=== PATIENT | male | born 1990 | race Caucasian/White ===

== ENCOUNTER → 2017-11-22 | Outpatient (CLI) | payer BC ==
--- NOTE | 2017-11-22 09:08 | CT ---
EXAMINATION TYPE: CT sinus wo con DATE OF EXAM: 11/22/2017 COMPARISON: NONE HISTORY: Chronic sinusitis CT DLP: [address] of the paranasal sinuses was performed in the axial plane for a preoperative for image guided sinus localization. Bone and soft tissue settings are submitted. There is mucosal thickening noted throughout all visualized paranasal sinuses compatible pansinusitis . Underlying polyposis is not excluded. The nasal septum is midline. No bony destructive changes are seen within the field of view. IMPRESSION: Pansinusitis. Underlying adipose is not excluded.
== END | disposition home or self-care (01) ==
LOC: RADCTMAIN 07:34
PROVIDERS: ATTEND Otolaryngology
DX: J32.4 Chronic pansinusitis (principal)
CPT/HCPCS: 70486

== ENCOUNTER 2017-12-12 06:38 | Day surgery (SDC) | payer BC ==
[2017-12-10 08:10] VITALS: BMI 25.7
[~2017-12-12 06:38] MED LIST: DEXAMETHASONE SOD PHOSPHATE 10 MG/ML 1 ML VIAL IV ONE; LACTATED RINGERS 1,000 ML IV SCH; LIDOCAINE 1% 20 ML VIAL (10MG/ML) FOR IV START INTRADERMA PRN; MORPHINE SULFATE 4 MG/ML SYRINGE IV PRN; ONDANSETRON 4 MG/2 ML VIAL IVP ONE
[2017-12-12 07:18] VITALS: TEMP 98.5
[2017-12-12] MEDS: OXYMETAZOLINE 0.05% NASL SPRAY 1 SPRAY BOTTLE EA NOSTRIL ONE ×5 (07:18→07:41)
[2017-12-12] MEDS ORDERED: fentaNYL (PF) 50 MCG/ML 2 ML AMP ONE (08:18)
[2017-12-12] MEDS ORDERED: MIDAZOLAM 2 MG/2 ML VIAL ONE (08:18)
[2017-12-12] MEDS ORDERED: SUCCINYLCHOLINE CHLORIDE 100 MG/5 ML SYR IV ONE (08:18)
[2017-12-12] MEDS ORDERED: LIDOCAINE 1% INJ 10MG/ML (20 ML MDV) ONE (08:18)
[2017-12-12] MEDS ORDERED: DEXAMETHASONE SOD PHOS (MDV) 100 MG/10 ML VIAL ONE (08:18)
[2017-12-12] MEDS ORDERED: PROPOFOL 10 MG/ML 20 ML VIAL IV ONE (08:18)
[2017-12-12] MEDS ORDERED: LIDOCAINE 1%-EPI 1:100,000 20 ML VIAL SQ ONE ×3 (08:29→09:36)
[2017-12-12] MEDS ORDERED: EPINEPHrine 1 MG/ML (MDV) 30 ML VIAL IRRIGATION ONE ×3 (08:29→09:07)
[2017-12-12] MEDS ORDERED: FLUORESCEIN STRIPS 1 MG STRIP MISCELLANE ONE ×2 (08:29→09:07)
--- NOTE | 2017-12-12 10:03 | P.OP ---
Date of Procedure: 12/12/17 Preoperative Diagnosis: Chronic pansinusitis with sinonasal polyposis Nasal polyps Deviated nasal septum to the left obstruction Bilateral hypertrophy of inferior nasal turbinates with obstruction Postoperative Diagnosis: Same Procedure(s) Performed: Image guided functional endoscopic sinus surgery of all sinuses with polypectomy and placement of propel and contour Septoplasty Bilateral submucosal resection of the inferior turbinates with outfracturing compression Implants: Dissolvable stents were placed utilizing propel and contour bilaterally Anesthesia: WILDA Surgeon: James Varghese Estimated Blood Loss (ml): 20 Pathology: other (sinonasal) Condition: stable Disposition: PACU Indications for Procedure: This patient presented to my office on November 18 of this year with multiple sinonasal complaints. I understand that the patient has had severe nasal congestion bilaterally and has failed medical therapy. He's been on multiple [id number] medications Sudafed Benadryl etc. with no improvement has been on antibiotics with no improvement. He did ALLERGY testing and immunotherapy for 5 years with no improvement he has total anosmia and examination revealed bilateral sinonasal polyposis with chronic pansinusitis. CAT scan was performed confirming pansinusitis and an image guided functional endoscopic sinus surgery, septoplasty, turbinate surgery was recommended. The patient requested this procedure. All risks, benefits, and alternative therapies were discussed. Risks of bleeding, infection, need for secondary surgery, orbital and PYROMETALLURGICAL ENGINEER penetration, change in sense of smell, etc. etc. were explained. Consent was obtained and all questions were answered. Operative Findings: Massive sinonasal disease with intranasal polyps and polyps and polypoid disease recurring and all sinuses. Septum was severely deviated to the left and the inferior turbinates were large and obstructive. Description of Procedure: This patient was taken to the operative room and placed in the supine position. A general inhalation anesthetic was administered to the patient by the department of anesthesia with a functioning IV line in place. The patient was monitored throughout the entire case by the department of anesthesia. The eyes were taped shut for protection. The patient was placed in a slight reverse Trendelenburg position. The patient had previously utilize Afrin nasal spray preoperatively. The nose was evaluated and the septum lateral nasal wall and inferior turbinates were injected with lidocaine 1% with epinephrine 1 100,000 bilaterally. Approximately 10 minutes were allowed wait for full vasoconstrictive effects to take place. At this point a caudal incision was made over the caudal portion of the left septum down to the mucoperichondrium. A mucoperichondrial flap was elevated on the left side and dissection was carried with use of tunnels posteriorly. We then made a crossover incision through the cartilage to the contralateral side and for the mucoperichondrial flap development was performed to the extent of visualization on the contralateral side. After the cartilage was freed with use of several crosshatching incisions and removal of some redundant strips of septal cartilage, the septum was straightened and placed back in the midline. The septum was sutured fixated to the ovarian groove. Excellent straightening occurred and the septum was visibly straight. Incision was closed with a 40 rapid Vicryl. We utilized a running nonlocking fashion for closure of the incision. A quilting stitch was used to reapproximate the septal flaps with use of a 40 rapid Vicryl. We then registered a [employer] image guided system for image guided assistance during surgery. Anatomic landmarks were verified throughout the surgical procedure. We then entered the nose with a [address]. Previous to this we did inject the lateral nasal wall and middle turbinate and uncinate process with lidocaine 1% with epinephrine 1 100,000. Approximately 10 minutes were allowed wait for full vasoconstrictive effects to take place. Intranasal polyps were noted. They were noted bilaterally. The intranasal polyps were removed with use of a microdebrider. With use of a microdebrider and a pediatric backbiter, we took down the uncinate process bilaterally. We then opened the maxillary sinuses bilaterally. We utilized a microdebrider for this and entered the maxillary sinuses and removed diseased tissue and polypoid tissue. This was done bilaterally. After the maxillary sinuses were opened and the diseased tissue and polyps were removed we entered the ethmoid bulla and with use of a microdebrider and up-biting Gianni, we remove the anterior septations and remove diseased tissue from the anterior ethmoids with direct visualization. We then followed the fovea frontalis through the basal lamella and into the posterior ethmoid air cells and did a total ethmoidectomy with removal of polypoid material. Once the ethmoids cells were all taken down we then entered the sphenoid sinus medially and inferiorly underneath the inferior attachment of the superior turbinate. The sphenoid sinus was opened entered and diseased tissue and polyps were removed bilaterally. This was done with a microdebrider and Blakesley. We then entered the frontal sinuses with a giraffe and up-biting Blakesley entered on the agar nasi cells. We open the frontal sinuses and removed sinus tissue and polypoid tissue that was diseased. We explored the frontal sinuses bilaterally. To summarize all sinuses were open all sinuses were explored and we remove diseased tissue and polyps from the sphenoid maxillary and frontal sinuses. Polyps were removed from the nose. Ethmoid sinuses were opened totally. We inserted bilateral propel and contour dissolvable stents. Xerogel was inserted bilaterally Nasal pore was inserted between the inferior turbinate and Gonzalez splints. minimal bleeding was encountered. We reinspected the skull base there is no signs of any orbital penetration or signs of any intracranial penetration. Attention was then paid to the inferior turbinates. The bilateral inferior turbinates were hypertrophic and obstructive. We entered the anterior portion of the inferior turbinates with use of a microdebrider. We remove bone and submucosal elements with use of a microdebrider bilaterally. The inferior turbinates underwent a submucosal resection with removal of submucosal tissue and bone. We obtained a much better and normal in size for breathing. The inferior turbinates were then outfractured and compressed with a [employer] nasal elevator. Excellent airway was obtained and was symmetric bilaterally. No bleeding was encountered. Intranasal splints were inserted and fixated at the end of the case. We utilized Gonzalez nasal splints. There will be removed and the patient returns to the office.
[2017-12-12] MEDS ORDERED: MORPHINE SULFATE 4 MG/ML SYRINGE IVP ONE (10:32)
[2017-12-12] MEDS ORDERED: METOPROLOL TARTRATE 5 MG/5 ML VIAL IVP ONE (11:10)
[2017-12-12] MEDS ORDERED: LACTATED RINGERS 1,000 ML IV ONE (11:19)
[2017-12-12] MEDS ORDERED: hydrALAZINE HCL 20 MG/ML 1 ML VIAL IVP ONE (11:30)
[2017-12-12] MEDS ORDERED: hydrALAZINE HCL 20 MG/ML 1 ML VIAL IV ONE (12:23)
[2017-12-12] MEDS ORDERED: HYDROcodone/APAP 5-325MG 1 EACH TAB PO ONE ×2 (12:33→13:00)
[2017-12-12 12:37] VITALS: RESP 16
[2017-12-12] MEDS ORDERED: ENALAPRILAT 1.25 MG/ML 1 ML VIAL IV ONE (14:05)
[2017-12-12] MEDS ORDERED: NITROGLYCERIN OINT 1 INCH/GM PACKET TOPICAL ONE ×2 (14:05)
[2017-12-12 14:56] VITALS: BP 143/90; PULSE 110
== END 2017-12-12 15:11 | disposition home or self-care (01) ==
LOC: OR 06:38
PROVIDERS: ATTEND Otolaryngology
DX: J32.4 Chronic pansinusitis (principal); J33.8 Other polyp of sinus; J33.9 Nasal polyp, unspecified; J34.2 Deviated nasal septum; J34.3 Hypertrophy of nasal turbinates; J30.89 Other allergic rhinitis; B49 Unspecified mycosis; Z87.891 Personal history of nicotine dependence
CPT/HCPCS: 88305; 88300; 31267; 31259; 31253; 30520; 30140; C2625 ×2; C1726; J0171; J2250; J2270; J0360; J1100 ×2; J2405; J2001; J3010; J0330; J2704